=== PATIENT | female | born 1935 | race Caucasian/White ===

== ENCOUNTER 2017-10-12 07:30 | Inpatient (IN) ==
[~2017-10-12 07:30] MED LIST: ACETAMINOPHEN 500 MG TABLET PO ONE; CLINDAMYCIN PB 900 MG/50 ML BAG IV ONE; DEXAMETHASONE 4 MG/ML INJECTION IVP ONE; FAMOTIDINE PB 20 MG/50 ML BAG IV ONE; LIDOCAINE 1% (10mg/ml) 2mL INJ PF SDV ID ONE; MELOXICAM 15 MG TABLET PO ONE; METOCLOPRAMIDE 10mg/2ml INJECTION IVP ONE; ONDANSETRON 4 MG/2 ML INJECTION IVP ONE; TRANEXAMIC ACID 1,000 MG in NS 100 ML IV ONE
--- OUTSIDE RECORDS SUMMARY | 2017-10-12 07:52 | External Medical Summary | Clinical Summary ---
:1935 Author Organization [facility] Address [address] [address] Phone Allergies Not on File Current Medications Not on file Active Problems Not on file Social History Tobacco Use Types Packs/Day Years Used Date Never Assessed Sex Assigned at Date Recorded Not on file Plan of Treatment Health Maintenance Due Date Last Done Comments DTaP,Tdap,and Td Vaccines (1 - Tdap) 02/09/1955 Zoster Vaccine (#1) 1996 Pneumo-Adult (1 of 2 - PCV13) 02/09/2001 Influenza Vaccine (#1) 2017 Results Not on filefrom Last 3 Months
[2017-10-12] MEDS ORDERED: EPINEPHrine PF 0.25 MG, BUPIVACAINE 0.25% PF 30 ML, MORPHINE SULFATE 15 MG, KETOROLAC I... OPSITE ONE (08:00)
[2017-10-12 08:39] VITALS: BMI 32.6
[2017-10-12] MEDS ORDERED: NOZIN NASAL SWAB NAS ONE ×2 (08:40→13:13)
[2017-10-12] MEDS ORDERED: VANCOMYCIN 1,000 MG INJECTION ONE (10:20)
[2017-10-12] MEDS ORDERED: PROPOFOL 500 MG/50 ML VIAL IV ONE (10:24)
[2017-10-12] MEDS ORDERED: KETAMINE 500 MG/10 ML INJECTION ONE (10:28)
[2017-10-12] MEDS ORDERED: FentaNYL 100 MCG/2 ML INJECTION ONE (10:28)
[2017-10-12] MEDS ORDERED: MIDAZOLAM 2mg/2ml INJECTION ONE (10:30)
[2017-10-12] MEDS ORDERED: VANCOMYCIN 1,000 MG INJECTION IAR ONE (11:26)
[2017-10-12] MEDS ORDERED: SALINE FLUSH 10ml SYRINGE IV PRN (12:36)
--- NOTE | 2017-10-12 12:51 | Anesthesia Preoperative Report ---
Anesthesia Preoperative Record - Date and Time Date: 10/12/17 Preoperative Diagnosis: Lt JANN M16.12 NPO Since Date: 10/11/17 NPO Since Time: 23:00 Allergies/Adverse Reactions: Allergies Allergy/AdvReac Type Severity Reaction Status Date / Time Penicillins Allergy Unknown HIVES Verified 10/12/17 08:20 hydrocodone AdvReac Severe Nausea and Verified 10/12/17 08:21 Vomiting - Vital Signs Vital Signs: Temperature 98 F 10/12/17 08:20 Pulse Rate 88 10/12/17 08:20 Respiratory Rate 18 10/12/17 08:20 Blood Pressure 236/108 H 10/12/17 08:20 Pulse Oximetry 95 10/12/17 08:20 Height and Weight: Height 1.68 m Weight 91.7 kg Body Mass Index 32.6 - Medications Inpatient Medications: Current Medications Epinephrine HCl 0.25 mg/Bupivacaine HCl 30 ml/Morphine Sulfate 15 mg/Ketorolac Tromethamine 60 mg/Sodium Chloride 65.25 mls @ 1 mls/hr OPSITE INTRAOP ONE PRN Reason: Protocol Stop: 10/15/17 01:14 Lactated Ringer's (Lactated Ringers) 1,000 mls @ 50 mls/hr IV .Q20H CRIS Last Admin: 10/12/17 09:00 Dose: 50 mls/hr Sodium Chloride (Iv Flush) 10 - 80 ml IV PRN PRN PRN Reason: [place] Home Medications: Home Medications Medication Instructions Recorded Confirmed Type Krill/Om3/Dha/Epa/Om6/Lip/Astx 1,000 mg PO BID #0 06/02/13 10/12/17 History [Krill Oil 1,000 mg Softgel] Montelukast Sodium [Singulair] 10 mg PO HS #0 06/02/13 10/12/17 History Omeprazole 20 mg PO DAILY #0 06/02/13 10/12/17 History Vitamin E 400 unit PO DAILY #0 06/02/13 10/12/17 History Albuterol Sulfate 2.5 mg AEROSOL Q4WA PRN 09/23/17 10/12/17 History Bio Tears 2 cap PO BID 09/23/17 10/12/17 History Calcium Carb/D3/Magnesium/Zinc 1 each PO BID 09/23/17 10/12/17 History [Balta Mag Zinc + D3 Tablet] Docusate Sodium [Stool Softener] 100 mg PO DAILY PRN 09/23/17 10/12/17 History Eye-Promise 1 cap PO BID 09/23/17 10/12/17 History Fluticasone Nasal [place] [Flonase] 2 spray EA NOSTRIL HS 09/23/17 10/12/17 History Meloxicam [Meloxicam] 7.5 mg PO DAILY 09/23/17 10/12/17 History Multivitamin [One Daily 1 each PO DAILY 09/23/17 10/12/17 History Multivitamin] Oxycodone HCl/Acetaminophen 1 tab PO Q6HPRN PRN 09/23/17 10/12/17 History [Oxycodon-Acetaminophen 7.5-325] Systane Eye Drops 1 drop EACH EYE BID 09/23/17 10/12/17 History Ubidecarenone [Coenzyme Q10] 150 mg PO DAILY 09/23/17 10/12/17 History Verelan (verapamil ER) 240 mg 24 240 mg PO DAILY 09/23/17 10/12/17 History hr capsule Ergocalciferol (Vit. D2) [Vitamin 1 cap PO DAILY 10/12/17 10/12/17 History D-2] Rutin/Quercetin/Bioflav/Bilber 40 mg PO DAILY 10/12/17 10/12/17 History [Bilberry Extract 40 mg Cap] Is Patient on Beta Sherly?: No - Medical History Respiratory: Reports: Asthma, Bronchitis, Pneumonia, Sleep Apnea Cardiovascular: Reports: Heart Murmur, Hypertension, High Cholesterol (not on med) Gastrointestional: Reports: Gastroesophageal Reflux Disease (controlled with med ) Neuro/Musculoskeletal: Reports: HX.MS.OSAR, Back Problems, Depression Other History: Reports: Anesthesia Reactions (coded after vag hyst-gen anesthesia-no problem w/ spinals), Cancer (skin cancers removed in office) - Surgical History HEENT Surgeries: Reports: Eye Surgery (cat ext with IOL implants OU), Nose Surgery (turbinate reduction) Respiratory Surgery/Treatments: Reports: CPAP Use GI Surgery/Treatments: Reports: Hernia Repair (umbilical), Colonoscopy (polyps; diverticula) Musculoskeletal Surgery/Tx: Reports: Total Knee Replacement (Rt and Lt TKA's) Reproductive Surgery/Treatment: Reports: Hysterectomy (Vag hyst with bladder repair) Anesthesia Reactions: Other Hx Family Anesthesia Reaction: No History of Motion Sickness: No - Social History Smoking Status: Former smoker Substance Use Type: does not use Alcohol Intake Frequency: does not drink - Pertinent Findings EKG: Sinus Rhythm - Physical Exam Respiratory Exam: Present: lungs clear Cardiovascular Exam: Present: regular rate and rhythm - Airway Assessment Mallampati Score: II TMD: 2 Fingerbreadths Neck Extension: good Overall Assessment: may be difficult mask vent - ASA ASA Score: 3 - Plan Anesthesia: Neuroaxial Regional/Trunk Block: Spinal - Discussion Discussion: Discussed risks/options/alternatives of anesthesia and questions answered. Patient consents. Nursing pain assessment noted. Attestation Statement: Prior to the delivery of any anesthetic medication, I examined the patient, developed the plan, obtained the patient's consent and discussed the risk and benefits of the procedure with the patient/guardian. - Additional Information Seen by Anesthesia: Yes
--- NOTE | 2017-10-12 12:51 | Anesthesia Postoperative Note ---
- Date and Time Date: 10/12/17 Time: 12:51 - Status Patient Participated in Evaluation: Patient Participated in Person Vital Signs: Temperature 97.1 F 10/12/17 12:26 Pulse Rate 66 10/12/17 12:26 Respiratory Rate 18 10/12/17 12:26 Blood Pressure 121/62 10/12/17 12:26 Pulse Oximetry 97 10/12/17 12:26 Respiratory Function: Airway Patent, Regular Respirations Cardiovascular Function: Regular Pulse EKG: Sinus Rhythm Mental Status: Alert and Oriented Pain Intensity: 0 (spinal intact) Hydration: IV Infusing Complications During Recover: None Apparent - Follow-Up Instructions Instructions: Per Surgeon
[2017-10-12] MEDS ORDERED: LR 1,000 ML IV SCH (13:00)
--- NOTE | 2017-10-12 13:00 | Operative Note ---
- Procedure Preoperative Diagnosis: Left hip primary degenerative joint disease Postoperative Diagnosis: Same as preoperative diagnosis. Surgeon: Manjit So MD Manager Creative Services: Jake Ponce Complications: None. Anesthesia: Spinal. Estimated Blood Loss: See Anesthesia Record. Fluids: Please see Anesthesia Record. Description of Procedure: Mrs. Lai and her left hip were identified and marked in the preoperative holding area. She was brought back to the operating suite and spinal anesthetic was administered. She was then placed in a lateral decubitus position with her left hip up. The left lower extremity was prepped and draped in my normal sterile fashion. Timeout was performed. The Soraa robotic arm was used to assist with the surgery. A pelvic array was placed into the iliac crest through three 1 cm incisions. A direct superior approach was utilized. An approximately 12 cm incision was made in the skin and dissection carried down to the muscle fascia which was then split in line with skin incision. A Charnley retractor was placed. A checkpoint was placed in the greater trochanter. The short external rotators were identified and tagged and detached. A capsulotomy was performed and the hip dislocated. A femoral neck osteotomy was performed at the pre-templated level measuring down from the femoral head 57 mm. The head was removed and acetabulum exposed. Labrum was removed. The acetabulum was then registered with the robot. The robotic arm was then used to ream with a 51 reamer. The robot then was again used to place a to 2 Trident cup in 40 of tilt and 25 of anteversion. One screw was placed in the superior posterior quadrant. A liner was then placed. The proximal femur was exposed and prepared with a cookie cutter followed by reaming and broaching to a size 4. We trialed with a +2.5 head. After thorough irrigation a final Accolade 2 size for stem with 127 neck was placed. Leg length and offset were checked with the robot and were good. A final +5 metal 36 mm head was placed and the hip reduced. Betadine solution was used to irrigate throughout the case. It was followed by normal saline irrigation. Joint cocktail was injected throughout soft tissue. The capsulotomy was repaired with Ethibond. Short external rotators were also repaired with Ethibond. 1 g of vancomycin powder was placed into the wound. The muscle fascia was then repaired with #1 Vicryl. I then left my chef's assistant to close the subcutaneous tissue with 2-0 Vicryl followed by running 4-0 Monocryl skin followed by Dermabond and a sterile dressing. The patient with any placed back into supine position and taken to recovery room in the care of anesthesia.
--- NOTE | 2017-10-12 13:12 | XRay Report ---
Indication: postoperative image PROCEDURE: XR pelvis w/ 1 view LT hip: Encounter: Initial Comparison: September 22, 2017 Findings: Postoperative changes of left total hip replacement are seen. There is expected postoperative subcutaneous gas. No evidence of hardware failure or acute fracture. No retained radiopaque surgical instruments or sponges seen. Impression: New left total hip prosthesis without evidence of immediate complication. .
[2017-10-12] MEDS ORDERED: ALBUTEROL 2.5mg/3ml (0.083%) NEB AEROSOL PRN (13:13)
[2017-10-12] MEDS ORDERED: DiphenhydrAMINE 25 MG CAPSULE PO PRN (13:13)
[2017-10-12] MEDS ORDERED: ONDANSETRON 4 MG/2 ML INJECTION IVP PRN (13:13)
[2017-10-12] MEDS ORDERED: Oxycodone *IR* 5 MG TABLET PO PRN (13:13)
[2017-10-12] MEDS ORDERED: DiphenhydrAMINE 50 MG/ML INJECTION IVP PRN (13:13)
[2017-10-12] MEDS ORDERED: LORazepam 1 MG TABLET PO PRN (13:13)
--- NOTE | 2017-10-12 13:33 | Anesthesia Postoperative Note ---
- Date and Time Date: 10/12/17 Time: 13:33 - Status Patient Participated in Evaluation: Patient Participated in Person Vital Signs: Temperature 97.7 F 10/12/17 13:27 Pulse Rate 58 L 10/12/17 13:25 Respiratory Rate 18 10/12/17 12:45 Blood Pressure 120/59 10/12/17 13:25 Pulse Oximetry 100 10/12/17 13:25 Respiratory Function: Airway Patent, Regular Respirations Cardiovascular Function: Regular Pulse Mental Status: Alert and Oriented Pain Intensity: 0 Hydration: IV Infusing Complications During Recover: None Apparent - Follow-Up Instructions Instructions: Per Surgeon
[2017-10-12] MEDS: NS 1,000 ML IV SCH (13:42)
[2017-10-12] MEDS: NOZIN NASAL SWAB NAS SCH ×2 (13:43→21:08)
[2017-10-12] MEDS: ACETAMINOPHEN 325 MG TABLET PO SCH ×3 (16:00→21:10)
[2017-10-12] MEDS: DEXAMETHASONE 20 MG/5 ML INJECTION IVP SCH (17:57)
[2017-10-12] MEDS: CLINDAMYCIN PB 600 MG/50 ML BAG IV SCH (17:57)
[2017-10-12] MEDS ORDERED: SENNOSIDES 8.6 MG TABLET PO SCH (21:00)
[2017-10-12] MEDS ORDERED: MONTELUKAST 10 MG TABLET PO SCH (21:00)
[2017-10-12] MEDS ORDERED: FLUTICASONE NASAL SPRAY 50mcg EA NOSTRIL SCH (21:00)
[2017-10-12] MEDS: SYSTANE EYE DROPS 0.7ml EACH EYE SCH (21:08)
[2017-10-12] MEDS: ASPIRIN *EC* 81 MG TABLET PO SCH (21:08)
[2017-10-12] MEDS: DOCUSATE SODIUM 100 MG CAPSULE PO SCH (21:08)
[2017-10-13] MEDS: CLINDAMYCIN PB 600 MG/50 ML BAG IV SCH ×2 (01:03→06:06)
[2017-10-13] MEDS: DEXAMETHASONE 20 MG/5 ML INJECTION IVP SCH (02:24)
[2017-10-13] MEDS: NS 1,000 ML IV SCH (04:52)
[2017-10-13] MEDS: NOZIN NASAL SWAB NAS SCH (06:07)
[2017-10-13 08:05] VITALS: RESP 18
--- NOTE | 2017-10-13 08:05 | Orthopedic Progress Note ---
Date: Date: 10/13/17 Time: 08 Subjective/Severity of Illness: Olimpia has been up with good tolerance. Pain levels are minimal this AM. She is frustrated with the water pitchers being so cheap. Denies CP, cough or SOA. Her BP was up last night and Dr Hatfield was consulted. Catapres 0.2mg was given and improved her BP. Orthopedic Objective PO Vital signs: Temperature 96.5 F L 10/13/17 04:00 Pulse Rate 57 L 10/13/17 04:00 Respiratory Rate 16 10/13/17 04:00 Blood Pressure 153/71 H 10/13/17 04:00 Pulse Oximetry 91 10/13/17 04:00 Height and Weight: Height 5 ft 6 in Weight 202 lb 2.622 oz Body Mass Index 32.6 - Constitutional General Appearance: Present: alert, cooperative, no acute distress - Respiratory Exam Present: non-labored - Cardiovascular Exam Present: pedal pulses intact - Extremities Exam Extremities: Present: pulses intact. Absent: calf tenderness - Surgical Site Incision: Mepilex dressing intact, dressing intact, no drainage - Integumentary Exam Present: pink, warm, dry - Neurological Exam Present: no deficits - Psychiatric Exam Present: alert, normal affect - Labs Result Diagrams: 10/13/17 04:03 10/13/17 04:03 Abnormal lab results 10/13/17 Range/Units 04:03 BUN 18.0 H (7-17) MG/DL Glucose 171 H (65-110) MG/DL H & H 10/13/17 Range/Units 04:03 Hgb 12.4 (12-16) GM/DL Hct 37.6 (36-46) % Orthopedic Assessment and Plan (1) Primary osteoarthritis of left hip Status: Acute Assessment and Plan: Current anti-coagulation protocol for VTE prophylaxis. SCD's for added coverage. Monitor BPs. Hospitalist consulted to manage. PT/OT services to improve independent function. Discharge Planning per Case Management. - Anticoagulation Therapy Anticoagulation: ASA 81 mg PO BID x6 weeks Hospital Course Summary Disclaimer: The visit summary below is not to be considered part of the above Progress Note.
[2017-10-13] MEDS ORDERED: Verapamil SR 120 MG TABLET E.R. PO SCH (09:00)
[2017-10-13] MEDS ORDERED: POLYETHYL GLYCOL 3350 17gm PACKET PO SCH (09:00)
[2017-10-13] MEDS ORDERED: COENZYME Q-10 200mg TABLET PO SCH (09:00)
[2017-10-13] MEDS ORDERED: VITAMIN E 400 UNIT CAPSULE PO SCH (09:00)
[2017-10-13] MEDS ORDERED: VERAPAMIL HCL 240 MG PO SCH (09:00)
[2017-10-13] MEDS ORDERED: UBIDECARENONE 150 MG PO SCH (09:00)
[2017-10-13] MEDS ORDERED: MELOXICAM 7.5 MG TABLET PO SCH (09:00)
--- NOTE | 2017-10-13 09:13 | Consult Note ---
Consult Information - Data of Consult Consult date: 10/13/17 Requesting Physician: Jermain So MD Primary Care Provider: Marcela Angel APRN Family Provider: Marcela Angel APRN - Consult Narrative Reason for consult: Hypertension History of present illness: Olimpia is a pleasant 82 yr old female who has been under the primary care of Marcela Denton APRN at [facility]. She was admitted under the care of Dr. So for a planned hip replacement. She did have episodes of hypertension preoperatively that she attributes to the amount of pain she was having. Postoperatively, last evening pressures continue to be elevated, reaching 200/ 118. At that time the hospitalist services were consulted. Patient was given a dose of Catapres, at which time her blood pressure did improve over the next 2- 3hours. This morning blood pressure remained stable at 133/69. She is seen and examined this morning for initial consultation. She is alert, oriented and pleasant. States postoperative hip pain is very minimal. She compares this to her preoperative pain. She has had for many months. No chest pain, no shortness of breath or dizziness. She is tolerating breakfast well. Voiding without difficulty. [facility] Patient Stated Medical History Clinic Medical History Asthma Chronic rhinitis HTN (hypertension) High cholesterol Osteoarthritis Sleep apnea Colon polyp Urinary incontinence- uses pessary GERD Depression Surgical History: Colonoscopy. Hystrectomy- 1986. Knee replacement- . Lumbar Epidural Family History: Father- Colon and Liver cancer, OA Mother-Aneurysm, Depression - Social History Smoking status: Never smoker Substance use type: does not use Alcohol intake frequency: does not drink Housing: house Household members: spouse Current residence: Apartment/Private Home Social history: PCP Sparkle Denton APRN at [facility] Experimental Box Tester- Dr Rosalind Busch Review of Systems All systems PM: 10-point ROS was reviewed, no additional remarkable complaints except Review of systems: Denies all ROS Medications Home Medications Medication Instructions Recorded Confirmed Type Krill/Om3/Dha/Epa/Om6/Lip/Astx 1,000 mg PO BID #0 06/02/13 10/12/17 History [Krill Oil 1,000 mg Softgel] Montelukast Sodium [Singulair] 10 mg PO HS #0 06/02/13 10/12/17 History Omeprazole 20 mg PO DAILY #0 06/02/13 10/12/17 History Vitamin E 400 unit PO DAILY #0 06/02/13 10/12/17 History Albuterol Sulfate 2.5 mg AEROSOL Q4WA PRN 09/23/17 10/12/17 History Bio Tears 2 cap PO BID 09/23/17 10/12/17 History Calcium Carb/D3/Magnesium/Zinc 1 each PO BID 09/23/17 10/12/17 History [Balta Mag Zinc + D3 Tablet] Docusate Sodium [Stool Softener] 100 mg PO DAILY PRN 09/23/17 10/12/17 History Eye-Promise 1 cap PO BID 09/23/17 10/12/17 History Fluticasone Nasal [place] [Flonase] 2 spray EA NOSTRIL HS 09/23/17 10/12/17 History Meloxicam 7.5 mg PO DAILY 09/23/17 10/12/17 History Multivitamin [One Daily 1 each PO DAILY 09/23/17 10/12/17 History Multivitamin] Systane Eye Drops 1 drop EACH EYE BID 09/23/17 10/12/17 History Ubidecarenone [Coenzyme Q10] 150 mg PO DAILY 09/23/17 10/12/17 History Verelan (verapamil ER) 240 mg 24 240 mg PO DAILY 09/23/17 10/12/17 History hr capsule Ergocalciferol (Vit. D2) [Vitamin 1 cap PO DAILY 10/12/17 10/12/17 History D-2] Rutin/Quercetin/Bioflav/Bilber 40 mg PO DAILY 10/12/17 10/12/17 History [Bilberry Extract 40 mg Cap] Allergies Allergy/AdvReac Type Severity Reaction Status Date / Time Penicillins Allergy Unknown HIVES Verified 10/12/17 08:20 hydrocodone AdvReac Severe Nausea and Verified 10/12/17 08:21 Vomiting Exam Vital Signs: Temperature 96.5 F L 10/13/17 08:00 Pulse Rate 58 L 10/13/17 08:00 Respiratory Rate 18 10/13/17 08:00 Blood Pressure 133/69 10/13/17 08:00 Pulse Oximetry 95 10/13/17 08:00 Height/Weight/BMI: Height 1.68 m Weight 95.7 kg Body Mass Index 32.6 - Constitutional Present: no acute distress, well nourished, well developed - Routine HEENT Exam Eye: Present: EOMI ENT: Present: mucous membranes moist, dentition normal - Routine Respiratory Exam Present: CTA bilaterally. Absent: wheezes - Routine Cardiovascular Exam Present: RRR, S1, S2, murmur - Routine Abdominal Exam Present: soft, normoactive bowel sounds, non distended. Absent: tenderness - Routine Extremities Exam Present: no edema, pulses intact - Routine Skin Exam Present: intact, dry, warm - Routine Neurological Exam Present: alert, oriented X3, CN II-XII intact, moving all extremities - Routine Psychiatric Exam Present: normal affect, cooperative Results - Labs CBC & Chem 7: 10/13/17 04:03 10/13/17 04:03 Assessment and Plan Assessment and Plan: Impression S/P Left total hip arthroplasty Hypertension- uncontrolled post-op Asthma hypercholesterolemia sleep apnea Plan Post-op Olimpia is feeling good and she reports left hip pain was so severe pre- operatively, that she feeling much relieve since surgery Orthopedic management as per Dr So. ASA BID x6 weeks for post-op anticoagulation She did have hypertension pre/post operatively reaching systolic 200's Was given one time dose of Catapres 0.2mg Po last evening. Blood pressure since that time has been well controlled Recommend continuing on home dose of Verapamil 240 daily. Follow blood pressures at home, Follow up with Sparkle Angel- DELINQUENT TAX COLLECTOR ASSISTANT Continue with senna, Miralax for post-op bowel motivation Appears to be medically stable for discharge. - Physician Narrative Physician: Suman Hatfield MD Narrative: Date: 10/13/17 Time: 1340 I have independently interviewed and examined pt. Chart reviewed. Case discussed with my DELINQUENT TAX COLLECTOR ASSISTANT. Care plan developed with my supervision; agree with above. Doing much better today post op. Pain MUCH decreased! Very happy about the improvement in comfort. BP elevated before and after Sx. Oral Catapres 0.2mg given last night with improvement of BP. Breathing well. Eating well. Tolerating therapy. Lungs: Clear bilaterally CV: regular with murmur. MSE: awake alert appropriate Plan: Continue with home BP meds. Monitor BP. Will needed continue blood pressure monitoring in outpatient setting. Medically doing well. May discharge as per ortho. Hospital Course Summary Disclaimer: The visit summary below is not to be considered part of the above Progress Note. Hospital Course: 10/13/17 Impression S/P Left total hip arthroplasty Hypertension- uncontrolled post-op Asthma hypercholesterolemia sleep apnea Plan Post-op Olimpia is feeling good and she reports left hip pain was so severe pre- operatively, that she feeling much relieve since surgery Orthopedic management as per Dr So. ASA BID x6 weeks for post-op anticoagulation She did have hypertension pre/post operatively reaching systolic 200's Was given one time dose of Catapres 0.2mg Po last evening. Blood pressure since that time has been well controlled Recommend continuing on home dose of Verapamil 240 daily. Follow blood pressures at home, Follow up with Sparkle Denton APRN Continue with senna, Miralax for post-op bowel motivation Appears to be medically stable for discharge.
[2017-10-13] MEDS: DOCUSATE SODIUM 100 MG CAPSULE PO SCH (09:46)
[2017-10-13] MEDS: ASPIRIN *EC* 81 MG TABLET PO SCH (09:46)
[2017-10-13] MEDS: ACETAMINOPHEN 325 MG TABLET PO SCH (09:46)
[2017-10-13] MEDS: SYSTANE EYE DROPS 0.7ml EACH EYE SCH (09:47)
[2017-10-13] MEDS ORDERED: SENNOSIDES 8.6 MG TABLET PO PRN (12:29)
[2017-10-13 12:34] VITALS: BP 134/69; PULSE 74; TEMP 96.1; O2SAT 93
--- NOTE | 2017-10-13 13:00 | Discharge Summary ---
Orthopedic Discharge Info Date of admission: 10/12/17 07:44 Primary care physician: Marcela Angel APRN Attending Physician: Jermain So MD Consults: 10/12/17 08:04 Consult to Anesthesiology [CONS] Routine Reason For Exam: Preoperative Assessment 10/12/17 13:13 Case Management Consult [CONS] Routine Reason For Exam: Discharge Planning DME-Walker [CONS] Routine Height: 5 ft 6 in Weight: 202 lb 2.622 oz Total Joint Outpatient Therapy [CONS] Routine Comment: Remove dressing in 2 weeks 10/12/17 18:17 Physician Consult [CONS] Routine Consulting Provider: Suman Hatfield Reason For Exam: HYPERTESION Ordering Provider has Notified Assisted Living Executive Director: Yes - Discharge Diagnosis (1) Primary osteoarthritis of left hip Status: Acute - Procedures Procedures: Procedures RT JANN - Laboratory Result Diagrams: 10/13/17 04:03 10/13/17 04:03 Laboratory: Abnormal lab results 10/13/17 Range/Units 04:03 BUN 18.0 H (7-17) MG/DL Glucose 171 H (65-110) MG/DL H & H 10/13/17 Range/Units 04:03 Hgb 12.4 (12-16) GM/DL Hct 37.6 (36-46) % Orthopedic Discharge HPI - HPI Comments This patient was admitted for elective surgical tx of end stage degenerative joint disease that failed to respond to conservative treatment. Further details of this is found in the admission H&P. Orthopedic Hospital Course Hospital course: 10/13/17 12:56 After appropriate preoperative clearance and signing of operative consent, the patient was given IV antibiotics, according to orthopedic protocol. The patient was taken to the operating room and underwent elective joint arthroplasty. Following surgery, antibiotics were discontinued less than 24 hours according to joint protocol. Appropriate anticoagulants were initiated and SCDs added for DVT prevention. The dressing was clean, dry, and intact. Pain control was obtained via multimodal approach. Bowel motivation addressed with scheduled and PRN medications. Early mobilization was initiated through PT services. Discharge arrangements made by a collaborative effort between the patient and Case Management. Olimpia had significant hypertension post op. Hospitalist was consulted and placed her on Catapres. Her BP improved. The hospitalist saw her post op day one and recommended discharge with home Verapamil and follow up with PCP. Follow-up is scheduled in 2-3 weeks. Discharge instructions given by orthopedic providers and nursing staff at discharge. Discharge condition was good. Ongoing care required?: No Discharge Plan - Med Rec/Dispo Referrals/Follow Up: Jermain So MD [Physician] - 11/03/17 2:00 pm [place] Instructions: [facility] Postop Instructions Additional Instructions: [facility] ON 10/14/2017 AT 2:30PM FOR PHYSICAL THERAPY EVAL. PHONE [phone] Please call your PCP and make a follow up on your hypertension within 2-3 days. Take your blood pressure daily and keep a log. Prescriptions: New Aspirin *EC* [Ecotrin] 81 mg PO BID #84 tab Oxycodone *IR* [Roxicodone *Ir*] 5 - 15 mg PO Q3H PRN #60 tab PRN Reason: Breakthrough Pain Acetaminophen [Tylenol] 650 mg PO QID tab PEG 3350 17gm PACKET [Miralax] 17 gm PO DAILY packet Continue Vitamin E 400 unit PO DAILY #0 Bio Tears 2 cap PO BID Eye-Promise 1 cap PO BID Multivitamin [One Daily Multivitamin] 1 each PO DAILY Meloxicam 7.5 mg PO DAILY Albuterol Sulfate 2.5 mg AEROSOL Q4WA PRN PRN Reason: Wheezing Ubidecarenone [Coenzyme Q10] 150 mg PO DAILY Ergocalciferol (Vit. D2) [Vitamin D-2] 1 cap PO DAILY Omeprazole 20 mg PO DAILY #0 Montelukast Sodium [Singulair] 10 mg PO HS #0 Krill/Om3/Dha/Epa/Om6/Lip/Astx [Krill Oil 1,000 mg Softgel] 1,000 mg PO BID # 0 Docusate Sodium [Stool Softener] 100 mg PO DAILY PRN PRN Reason: Constipation Calcium Carb/D3/Magnesium/Zinc [Balta Mag Zinc + D3 Tablet] 1 each PO BID Fluticasone Nasal [place] [Flonase] 2 spray EA NOSTRIL HS Systane Eye Drops 1 drop EACH EYE BID Rutin/Quercetin/Bioflav/Bilber [Bilberry Extract 40 mg Cap] 40 mg PO DAILY Verelan (verapamil ER) 240 mg 24 hr capsule 240 mg PO DAILY Discontinued Oxycodone HCl/Acetaminophen [Oxycodon-Acetaminophen 7.5-325] 1 tab PO Q6HPRN PRN PRN Reason: Pain
[2017-10-14] MEDS ORDERED: BISACODYL 10 MG SUPPOSITORY RECTALLY SCH (20:00)
== END 2017-10-13 14:20 | disposition home or self-care (01) | DRG 470 ==
LOC: SRG 07:44
PROVIDERS: ADMIT Orthopaedic Surgery; ATTEND Orthopaedic Surgery